=== PATIENT | female | born 1965 | race Two or more races ===

== ENCOUNTER 2017-09-28 07:23 | Outpatient (CLI) | payer OTHER | END 2017-09-28 07:31 | disposition home or self-care (01) | LOC: RAD 07:23 | DX: M25.551 Pain in right hip (principal); M25.552 Pain in left hip ==

== ENCOUNTER 2017-11-12 08:35 | Outpatient (CLI) | payer OTHER | END 2017-11-12 09:58 | disposition home or self-care (01) | LOC: RAD 08:35 | DX: M65.341 Trigger finger, right ring finger (principal); M65.331 Trigger finger, right middle finger; Z87.39 Personal history of other diseases of the musculoskeletal system and connective tissue; G56.01 Carpal tunnel syndrome, right upper limb ==

== ENCOUNTER 2018-07-11 08:13 | Outpatient (CLI) | payer OTHER | END 2018-07-11 12:58 | disposition home or self-care (01) | LOC: NUCLEAR 08:13 | DX: M06.09 Rheumatoid arthritis without rheumatoid factor, multiple sites (principal) | CPT/HCPCS: 78315; A9503 ==

== ENCOUNTER 2019-11-22 16:07 | Outpatient (CLI) | payer OTHER | END 2019-11-22 16:09 | disposition home or self-care (01) | LOC: RAD 16:07 | DX: M25.551 Pain in right hip (principal); M25.552 Pain in left hip ==

== ENCOUNTER 2023-05-04 07:06 | Outpatient (CLI) | payer OTHER | END 2023-05-04 07:14 | disposition home or self-care (01) | LOC: NUCLEAR 07:06 | PROVIDERS: ATTEND Physical Medicine & Rehabilitation | DX: M06.4 Inflammatory polyarthropathy (principal) ==